=== PATIENT | female | born 1945 | race Caucasian/White ===

== ENCOUNTER 2017-05-06 14:57 | Emergency (ER) | payer MEDICARE ==
[~2017-05-06] VITALS: Ht 157.5 cm; Wt 66.7 kg
[2017-05-06] MEDS ORDERED: AZIT250 PO (16:32)
[2017-05-06] MEDS ORDERED: HYDCHL25 PO (16:32)
[2017-05-06] MEDS ORDERED: PRED20 PO (16:32)
[2017-05-06] MEDS ORDERED: Amoxicillin500 MG PO (16:32)
[2017-05-06] MEDS ORDERED: LEVSOD50 PO (16:33)
[2017-05-06] MEDS ORDERED: OMEPRAZOLE MAGN20 MG PO (16:33)
[2017-05-06] MEDS ORDERED: K-Dur10 MEQ (16:33)
[2017-05-06] MEDS ORDERED: Mupirocin22 GM (16:33)
[2017-05-06] MEDS ORDERED: Augmentin 500-1 EACH PO (17:20)
[2017-05-06] MEDS ORDERED: Triamcinolone A15 GM TOP (17:20)
== END 2017-05-06 17:27 | disposition home or self-care (01) ==
LOC: ER 14:57
DX: L03.031 Cellulitis of right toe (principal); I10 Essential (primary) hypertension; K21.9 Gastro-esophageal reflux disease without esophagitis; E03.9 Hypothyroidism, unspecified; Z88.5 Allergy status to narcotic agent; Z87.01 Personal history of pneumonia (recurrent); Z79.899 Other long term (current) drug therapy
CPT/HCPCS: 73630; 82947; 99283

== ENCOUNTER 2017-07-06 17:42 | Emergency (ER) | payer MEDICARE ==
[~2017-07-06] VITALS: Ht 152.4 cm; Wt 62.1 kg
[~2017-07-06 17:42] MED LIST: AZIT250 PO; Amoxicillin500 MG PO; Augmentin 500-1 EACH PO; HYDCHL25 PO; K-Dur10 MEQ; LEVSOD50 PO; Mupirocin22 GM; OMEPRAZOLE MAGN20 MG PO; PRED20 PO; Triamcinolone A15 GM TOP
[2017-07-06 18:54] LABS: BASOPHILS ABSOLUTE AUTO 0.03 K/mm3 (0.00-0.23); BASOPHILS PERCENT AUTO 0 % (0-2); EOSINOPHILS ABSOLUTE AUTO 0.42 K/mm3 (0.00-0.68); EOSINOPHILS PERCENT AUTO 2 % (0-6); Hematocrit 43.9 % (33.0-51.0); Hemoglobin 14.7 g/dL (11.5-16.0); IMMATURE GRAN ABSOLUTE AUTO 0.12 K/mm3 (0.00-0.10); IMMATURE GRAN PERCENT AUTO 1 % (0-1); LYMPHOCYTES ABSOLUTE AUTO 1.61 K/mm3 (0.84-5.20); LYMPHOCYTES PERCENT AUTO 8 % (21-46); MONOCYTES ABSOLUTE AUTO 1.52 K/mm3 (0.16-1.47); MONOCYTES PERCENT AUTO 7 % (4-13); Mean Corpuscular HGB 30.4 pg (26.0-34.0); Mean Corpuscular HGB Conc 33.5 g/dL (31.5-36.5); Mean Corpuscular Volume 91 fL (80-100); NEUTROPHILS ABSOLUTE AUTO 16.99 K/mm3 (1.96-9.15); NEUTROPHILS PERCENT AUTO 82 % (41-73); Platelet Count 323 K/mm3 (150-400); RDW Coefficient Variation 13.4 % (11.7-14.2); RDW Standard Deviation 45.2 fL (35.1-46.3); Red Blood Cell Count 4.83 M/mm3 (3.80-5.20); White Blood Cell Count 20.69 K/mm3 (4.00-11.30)
[2017-07-06 19:12] LABS: Alanine Aminotransfer (ALT/SGP 18 U/L (12-78); Albumin, Blood 3.5 g/dL (3.4-5.0); Albumin/Globulin Ratio 0.8 (0.8-1.8); Alk Phos 172 U/L (50-136); Anion Gap 9 mmol/L (6-16); Aspartate Aminotrans (AST/SGOT 14 U/L (12-37); Bilirubin, Total 1.4 mg/dL (0.1-1.0); Blood Urea Nitrogen 24 mg/dL (8-24); Bun/Creatinine Ratio 24.8 (12.0-20.0); CO2, Blood 27 mmol/L (21-32); Calcium, Blood 9.3 mg/dL (8.5-10.1); Chloride, Blood 101 mmol/L (98-108); Creatinine, Blood 0.97 mg/dL (0.40-1.00); Globulin, Blood 4.2 g/dL (2.2-4.0); Glomerular Filtration Rate >60 (60-); Glucose, Blood 128 mg/dL (70-99); Potassium, Blood 3.6 mmol/L (3.5-5.5); Sodium, Blood 137 mmol/L (136-145); Total Protein, Blood 7.7 g/dL (6.4-8.2)
[2017-07-06 21:44] LABS: Source, Urine Clean Catch
[2017-07-06 21:49] LABS: Blood, Urine 2+ (Neg); Glucose Qualitative, Urine Neg (Neg); Ketones, Urine 1+ (Neg); Leukocyte Esterase, Urine 1+ (Neg); Nitrite, Urine Neg (Neg); Protein, Urine 2+ (Neg); Specific Gravity, Urine 1.025 (1.003-1.022); Urobilinogen, Urine 2+ (Normal)
[2017-07-06 21:51] LABS: Appearance, Urine Hazy (Clear); Bilirubin, Urine 2+ (Neg); Color, Urine Amber (P-Yellow)
[2017-07-06 22:11] LABS: Amorphous Light (0-Heavy); Bacteria Mod /hpf; Calcium Oxalate Crystals Few /hpf; Hyaline Casts 25-50 /lpf (0-2); Red Blood Cells, Urine 0-2 /hpf (0-2); Squamous Epithelial Cells Few /hpf (Few)
[2017-07-06] MEDS ORDERED: POTCHL10ER (22:25)
[2017-07-06] MEDS ORDERED: HYDCHL25 PO (22:25)
[2017-07-06] MEDS ORDERED: MONT10T PO (22:26)
[2017-07-06] MEDS ORDERED: ALBU90OI61 INH (22:26)
== END 2017-07-07 02:05 | disposition home or self-care (01) ==
LOC: ER 17:42
PROVIDERS: Emergency Medicine
DX: R10.9 Unspecified abdominal pain (principal); R11.2 Nausea with vomiting, unspecified; J45.909 Unspecified asthma, uncomplicated; Z88.5 Allergy status to narcotic agent; Z79.899 Other long term (current) drug therapy; Z79.52 Long term (current) use of systemic steroids; Z79.2 Long term (current) use of antibiotics
CPT/HCPCS: 74019; 74177; 80053; 81001; 83690; 85025; 87077; 87086; 87186; 96374; 96376; 99284; J2405; J7120; Q9967

== ENCOUNTER 2018-03-04 05:43 | Day surgery (SDC) | payer MEDICARE, OTHER ==
[~2018-03-04] VITALS: Wt 62.1 kg
[~2018-03-04 05:43] MED LIST changes: +ACYC400 PO; +ALBU90OI61 INH; +HYDR1TAB94 PO; +MONT10T PO; +NAPR500 PO; +POTCHL10ER PO; +PRAV20 PO; +[UNRECOGNIZED DRUG - OTHER] PO
--- NOTE | 2018-03-04 06:41 | NUR ---
History, Chart, Medications and Allergies reviewed before start of procedure.Lungs clear T/O to Auscultation. LOTS OF QUESTIONS VSS WITH SLIGHTLY ELEVATED BP
--- NOTE | 2018-03-04 07:40 | NUR ---
BUMPED FOR OB BY AROUND 30 MINUTES
--- NOTE | 2018-03-04 08:58 | NUR ---
03/04/18 0858 Lakisha Mishra PT HAS SMALL OPEN CUT ON LEFT BIG TOE. NOTIFIED AND ASSESSED
--- NOTE | 2018-03-04 17:09 | NUR ---
SHIFT SUMMARY PT TOLERATED DIET EARLIER. PT BECAME NAUSEA WITH SMALL AMT OF EMESIS AFTER PT HAD 2ND OXYCODONE. PT DID NOT BECOME NAUSOUS AFTER HAVING FIRST OXYCODONE. PT REQ TO HAVE PAIN MED SWITCHED TO NORCO SHE HAS TAKEN THOSE BEFORE WITH NO ISSUES, CALL OUT TO . PT BEEN UP WITH THERAPY AND AMBULATED IN HALLWAY. PT VOIDING, BEEN UP TO CHAIR. TEDS/PAS/POLAR PAC IN PLACE. PT BEEN ASSISTED WITH ADL'S PRN.
--- NOTE | 2018-03-04 17:50 | NUR ---
TALKED TO DR ANDRADE REGARDING PT HAVING NAUSEA WITH SMALL AMT OF EMESIS AFTER HAVING 2ND OXYCODONE. PT REPORTED TAKING NORCO PREVIOUSLY WITH NO ISSUES. SEE ORDERS.
[2018-03-05 06:01] LABS: BASOPHILS ABSOLUTE AUTO 0.05 K/mm3 (0.00-0.23); BASOPHILS PERCENT AUTO 1 % (0-2); EOSINOPHILS ABSOLUTE AUTO 0.25 K/mm3 (0.00-0.68); EOSINOPHILS PERCENT AUTO 3 % (0-6); Hematocrit 28.6 % (33.0-51.0); Hemoglobin 9.1 g/dL (11.5-16.0); IMMATURE GRAN ABSOLUTE AUTO 0.02 K/mm3 (0.00-0.10); IMMATURE GRAN PERCENT AUTO 0 % (0-1); LYMPHOCYTES ABSOLUTE AUTO 1.88 K/mm3 (0.84-5.20); LYMPHOCYTES PERCENT AUTO 19 % (21-46); MONOCYTES ABSOLUTE AUTO 0.67 K/mm3 (0.16-1.47); MONOCYTES PERCENT AUTO 7 % (4-13); Mean Corpuscular HGB 30.1 pg (26.0-34.0); Mean Corpuscular HGB Conc 31.8 g/dL (31.5-36.5); Mean Corpuscular Volume 95 fL (80-100); Mean Platelet Volume 11.1 fL (9.1-12.4); NEUTROPHILS ABSOLUTE AUTO 6.87 K/mm3 (1.96-9.15); NEUTROPHILS PERCENT AUTO 71 % (41-73); Platelet Count 193 K/mm3 (150-400); RDW Coefficient Variation 13.4 % (11.7-14.2); RDW Standard Deviation 46.3 fL (35.1-46.3); Red Blood Cell Count 3.02 M/mm3 (3.80-5.20); White Blood Cell Count 9.74 K/mm3 (4.00-11.30)
[2018-03-05 06:21] LABS: Anion Gap 8 mmol/L (6-16); Blood Urea Nitrogen 24 mg/dL (8-24); CO2, Blood 25 mmol/L (21-32); Chloride, Blood 106 mmol/L (98-108); Creatinine, Blood 0.83 mg/dL (0.40-1.00); Glomerular Filtration Rate >60 (60-); Glucose, Blood 96 mg/dL (70-99); Sodium, Blood 139 mmol/L (136-145)
--- NOTE | 2018-03-05 07:19 | NUR ---
SHIFT SUMMARY PT IS POD 1 LEFT TKA. SHE IS A&O, ABLE TO MAKE NEEDS KNOWN. PT AMBULATES IN HALLS W/ 1 ASSIST, GB, FWW. MEDICATED FOR PAIN PER EMAR. PT VOIDING, EATING, DRINKING. SHE DID GET NAUSEATED LAST NIGHT AND VOMITED. REPORT PASSED TO NEXT SHIFT.
--- NOTE | 2018-03-05 17:45 | NUR ---
UP TO RECLINER MOST OF THE DAY, TOLERATING AMBULATING TO THE BATHROOM WITH STANDBY ASSIST, C/O 9/10 PAIN MOST OF THE DAY, NORCO Q4HR GIVEN, PT ALSO HAS HAD A DOSE OF IV FENTANYL THIS AM, DR. SCHAEFER NOTIFIED NORCO INCREASED TO 10MG 1-1 1/2 TAB PO Q4 HRS PRN, HAD SOME NAUSEA TODAY BUT RESOLVED ON ITS OWN WITHOUT ANTIEMETICS GIVEN, PT RELUCTANT TO GO HOME THIS EVENING WITH INCREASED NEED FOR PAIN MEDS, NO OTHER CHANGES THIS SHIFT.
--- NOTE | 2018-03-06 05:38 | NUR ---
LYING IN SEMI FOWLERS WITH EYES CLOSED. PAIN IS MANAGED WITH CURRENT PAIN REGIEMEN. REPOSITIONES SELF PRN FOR COMFORT. NO FURTHER CHANGES SINCE START OF SHIFT. SAFETY MEASURES IN PLACE. WILL GIVE HAND OFF TO ONCOMING SHIFT USING SBAR.
[2018-03-06] MEDS ORDERED: ASPI325EC PO (10:15)
[2018-03-06] MEDS ORDERED: Norco 10-325 T1 EACH PO (11:35)
[2018-03-06] MEDS ORDERED: ACET500 PO (12:07)
--- NOTE | 2018-03-06 12:45 | NUR ---
DC'D HOME, DC INSTRUCTIONS GIVEN TO PT AND FRIEND/DAY CARE ATTENDANT, VERBALIZED UNDERSTANDING.
== END 2018-03-06 12:44 | disposition home or self-care (01) ==
LOC: ORSCMMR 05:43 → PRE IP 07:30 → EDSTATUS 07:30 → SURS 12:23 → ORSCMMR 03-06 12:44
PROVIDERS: Orthopaedic Surgery
PROC: 0SRD0J9 Replacement of Left Knee Joint with Synthetic Substitute, Cemented, Open Approach (ICD-10-PCS; principal; 2018-03-04 07:30)
DX: M17.12 Unilateral primary osteoarthritis, left knee (principal); J45.909 Unspecified asthma, uncomplicated; K21.9 Gastro-esophageal reflux disease without esophagitis; I25.2 Old myocardial infarction; Z79.899 Other long term (current) drug therapy
CPT/HCPCS: 36415; 73560-LT; 80048; 83735; 85025; 88300; 97110; 97116; 97162; 97530; C1713; C1776; J0171; J0690; J0735; J1100; J1170; J1885; J2250; J2405; J2765; J2795; J3010; J7120

== ENCOUNTER 2018-06-07 07:52 | Inpatient (IN) | payer MEDICARE, OTHER ==
[~2018-06-07] VITALS: Ht 154.9 cm; Wt 57.6 kg
[~2018-06-07 07:52] MED LIST changes: +ACET500 PO; +ASPI325EC PO; +Magnesium Citr296 ML PO; +Norco 5-325 Ta1 EACH PO; +PROM25S PR; +Zofran4 MG PO
[2018-06-07 09:28] LABS: BASOPHILS ABSOLUTE AUTO 0.07 K/mm3 (0.00-0.23); BASOPHILS PERCENT AUTO 1 % (0-2); EOSINOPHILS ABSOLUTE AUTO 0.05 K/mm3 (0.00-0.68); EOSINOPHILS PERCENT AUTO 0 % (0-6); Hematocrit 41.2 % (33.0-51.0); Hemoglobin 12.6 g/dL (11.5-16.0); IMMATURE GRAN ABSOLUTE AUTO 0.07 K/mm3 (0.00-0.10); IMMATURE GRAN PERCENT AUTO 1 % (0-1); LYMPHOCYTES ABSOLUTE AUTO 1.42 K/mm3 (0.84-5.20); LYMPHOCYTES PERCENT AUTO 11 % (21-46); MONOCYTES ABSOLUTE AUTO 1.02 K/mm3 (0.16-1.47); MONOCYTES PERCENT AUTO 8 % (4-13); Mean Corpuscular HGB 28.1 pg (26.0-34.0); Mean Corpuscular HGB Conc 30.6 g/dL (31.5-36.5); Mean Corpuscular Volume 92 fL (80-100); NEUTROPHILS ABSOLUTE AUTO 10.55 K/mm3 (1.96-9.15); NEUTROPHILS PERCENT AUTO 80 % (41-73); Platelet Count 216 K/mm3 (150-400); RDW Coefficient Variation 14.3 % (11.7-14.2); RDW Standard Deviation 47.9 fL (35.1-46.3); Red Blood Cell Count 4.49 M/mm3 (3.80-5.20); White Blood Cell Count 13.18 K/mm3 (4.00-11.30)
[2018-06-07 09:44] LABS: Alanine Aminotransfer (ALT/SGP 13 U/L (12-78); Albumin, Blood 2.8 g/dL (3.4-5.0); Albumin/Globulin Ratio 0.7 (0.8-1.8); Alk Phos 91 U/L (50-136); Anion Gap 9 mmol/L (6-16); Aspartate Aminotrans (AST/SGOT 20 U/L (12-37); Bilirubin, Total 0.6 mg/dL (0.1-1.0); Blood Urea Nitrogen 35 mg/dL (8-24); Bun/Creatinine Ratio 37.1 (12.0-20.0); CO2, Blood 25 mmol/L (21-32); Calcium, Blood 8.6 mg/dL (8.5-10.1); Chloride, Blood 103 mmol/L (98-108); Creatinine, Blood 0.94 mg/dL (0.40-1.00); Globulin, Blood 3.8 g/dL (2.2-4.0); Glomerular Filtration Rate >60 (60-); Glucose, Blood 79 mg/dL (70-99); Potassium, Blood 3.6 mmol/L (3.5-5.5); Sodium, Blood 137 mmol/L (136-145); Total Protein, Blood 6.6 g/dL (6.4-8.2)
[2018-06-07 09:49] LABS: International Normalized Ratio 1.11; Prothrombin Time Results 11.7 Sec (9.7-11.5)
[2018-06-07 13:57] LABS: CHOL/HDL RATIO 3.4; Cholesterol 161 mg/dL (50-200); HDL Cholesterol 48 mg/dL (>39); LDL/HDL RATIO 1.8; Low Density Lipoprotein Chol 87 mg/dL (0-110); Triglycerides 130 mg/dL (30-160); Very Low Density Lipoprot Chol 26 mg/dL (6-32)
[2018-06-07] MEDS ORDERED: Bisoprolol Fumar5 MG PO (14:04)
--- NOTE | 2018-06-07 16:10 | NUR ---
PATIENT ARRIVES VIA STRETCHER. VERY GARBLED SPEECH WHICH IS INCOMPREHENSIBLE. PRINCIPAL NETWORK ENGINEER EQUAL AND VERY WEAK. NO ARM DRIFT. UNABLE TO TOUCH NOSE WITH FINGER WITH EITHER HAND--TOUCHES CHIN OR LIPS. UNABLE TO LIFT EITHER LEG OFF BED. FOOT PUSH VERY WEAK BUT EQUAL. PULLING TOES TO NOSE ALSO EQUAL BUT VERY WEAK. SEEMS TO COMPREHEND WHAT RN IS SAYING. WHEN ASKED IF SHE NEEDS TO USE BEDPAN, NODS HEAD. PATIENT DID URINATE. TELE ON. ALARM ON. REVIEW CVA W/RELATIVES WHO HAVE SINCE LEFT. ADVISED S.O. HE CAN CALL ABOUT UPDATES. SOFT TOUCH CALL LIGHT SET UP.[facility]
--- NOTE | 2018-06-08 03:33 | NUR ---
SHIFT SUMMARY PATIENT HAD NO ACUTE CHANGES OBSERVED THIS SHIFT. NON-VERBAL AND BEDFAST BUT WILL FOLLOW DIRECTIONS. CLEANING ASSOCIATE WEAK WITH RS CRYOGENICS REPAIRER VERY WEAK. ABLE TO LIFT BOTH ARMS WITH R ARM SLOWER TO RAISE. PUPILS EQUAL AND REACTIVE. NPO UNTIL SPEECH EVALUATION. PIV REMAINS INTACT. NO S/SX OF PAIN, SOB, AND N/V. COST ACCOUNTANT REPORTS NSR 73 W/PVC. USES BEDPAN. SOFT TOUCH CALL LIGHT. BED ALARM ACTIVATED. WILL CONTINUE TO MONITOR UNTIL DAY SHIFT NURSE ASSUMES CARE.
[2018-06-08 05:51] LABS: BASOPHILS PERCENT AUTO 1 % (0-2); EOSINOPHILS ABSOLUTE AUTO 0.13 K/mm3 (0.00-0.68); EOSINOPHILS PERCENT AUTO 2 % (0-6); Hematocrit 34.8 % (33.0-51.0); IMMATURE GRAN ABSOLUTE AUTO 0.02 K/mm3 (0.00-0.10); IMMATURE GRAN PERCENT AUTO 0 % (0-1); LYMPHOCYTES ABSOLUTE AUTO 1.37 K/mm3 (0.84-5.20); LYMPHOCYTES PERCENT AUTO 18 % (21-46); MONOCYTES ABSOLUTE AUTO 0.73 K/mm3 (0.16-1.47); MONOCYTES PERCENT AUTO 10 % (4-13); Mean Corpuscular HGB 28.6 pg (26.0-34.0); Mean Corpuscular HGB Conc 31.6 g/dL (31.5-36.5); Mean Corpuscular Volume 90 fL (80-100); Mean Platelet Volume 11.1 fL (9.1-12.4); NEUTROPHILS ABSOLUTE AUTO 5.35 K/mm3 (1.96-9.15); NEUTROPHILS PERCENT AUTO 69 % (41-73); Platelet Count 200 K/mm3 (150-400); RDW Coefficient Variation 14.6 % (11.7-14.2); RDW Standard Deviation 48.4 fL (35.1-46.3); Red Blood Cell Count 3.85 M/mm3 (3.80-5.20)
[2018-06-08 06:12] LABS: Calcium, Blood 8.3 mg/dL (8.5-10.1); Creatinine, Blood 1.02 mg/dL (0.40-1.00); Potassium, Blood 3.3 mmol/L (3.5-5.5)
--- NOTE | 2018-06-08 18:48 | NUR ---
SHIFT SUMMARY NO ACUTE CHANGES. PATIENT WORKED WITH PT/OT AND SPEECH TODAY. PATIENT ADVANCED TO PUREE TEXTURE AND ABLE TO USE STRAW. 1 ASSIST TO CHAIR W/ GAIT BELT AND FWW. MEDICATED X 1 FOR PAIN IN THE RIGHT KNEE. COLD AND HEAT THERAPY ALSO HELPFUL. FAMILY AT BEDSIDE. PATIETN ABLE TO SHAKE HEAD YES/NO BUT CONTINUE TO STRUGGLE TO FORM WORDS. CALL LIGHT IN REACH, WILL CONTINUE TO MONITOR.
[2018-06-09 05:02] LABS: BASOPHILS ABSOLUTE AUTO 0.07 K/mm3 (0.00-0.23); BASOPHILS PERCENT AUTO 1 % (0-2); EOSINOPHILS ABSOLUTE AUTO 0.36 K/mm3 (0.00-0.68); EOSINOPHILS PERCENT AUTO 5 % (0-6); Hematocrit 32.3 % (33.0-51.0); Hemoglobin 10.1 g/dL (11.5-16.0); IMMATURE GRAN ABSOLUTE AUTO 0.02 K/mm3 (0.00-0.10); IMMATURE GRAN PERCENT AUTO 0 % (0-1); LYMPHOCYTES ABSOLUTE AUTO 1.61 K/mm3 (0.84-5.20); LYMPHOCYTES PERCENT AUTO 22 % (21-46); MONOCYTES ABSOLUTE AUTO 0.72 K/mm3 (0.16-1.47); MONOCYTES PERCENT AUTO 10 % (4-13); Mean Corpuscular HGB 27.8 pg (26.0-34.0); Mean Corpuscular HGB Conc 31.3 g/dL (31.5-36.5); Mean Corpuscular Volume 89 fL (80-100); Mean Platelet Volume 11.2 fL (9.1-12.4); NEUTROPHILS ABSOLUTE AUTO 4.52 K/mm3 (1.96-9.15); NEUTROPHILS PERCENT AUTO 62 % (41-73); Platelet Count 195 K/mm3 (150-400); RDW Coefficient Variation 14.4 % (11.7-14.2); RDW Standard Deviation 46.8 fL (35.1-46.3); Red Blood Cell Count 3.63 M/mm3 (3.80-5.20)
[2018-06-09 05:23] LABS: Anion Gap 4 mmol/L (6-16); Blood Urea Nitrogen 48 mg/dL (8-24); Bun/Creatinine Ratio 61.7 (12.0-20.0); CO2, Blood 28 mmol/L (21-32); Calcium, Blood 7.9 mg/dL (8.5-10.1); Chloride, Blood 111 mmol/L (98-108); Creatinine, Blood 0.78 mg/dL (0.40-1.00); Glomerular Filtration Rate >60 (60-); Glucose, Blood 87 mg/dL (70-99); Potassium, Blood 3.6 mmol/L (3.5-5.5); Sodium, Blood 143 mmol/L (136-145)
--- NOTE | 2018-06-09 05:56 | NUR ---
SHIFT SUMMARY PT HAD FAIR NIGHT, MEDICATED FOR PAIN AT BEDTIME. DIFFICULT TO COMMUNICATE WITH PT SHE IS NON-VERBAL. PT POINTS TO WHAT SHE WANTS OR CRIES OUT IF SHE'S HAVING PAIN. PT WITH RIGHT SIDED FACIAL DROOP AND RIGHT SIDED DEFICIT. PT INCONTINENT DURING THE NIGHT. NO ACUTE EVENTS OR CHANGES NOTED DURING THE NIGHT, WILL CONTINUE TO MONITOR.
--- NOTE | 2018-06-09 16:28 | NUR ---
SUMMARY DX CVA W R FACIAL DROOP, WEAKNESS R ARM & LEG, APHASIA. SYMPTOMS CONTINUE. SHE ATTEMPTS TO MAKE SPEECH HOWEVER UNABLE. ST TX THIS AM, THERAPIST STATE MINIMAL IMPROVEMENT. DIET CONTINUES PUREED. STATE PT UNABLE TO MAKE WORDS, SHE WAS ABLE TO COPY SOME WRITTEN WORDS. PT ABLE TO COMMAND RUE, HOWEVER POOR COORDINATION. WEAK R LEG, ABLE TO BR SOME WT. SAND PIVOT TO CHAIR 1 ASSIST. SHE HAS HX R KNEE/JOINT PAIN, TYLENOL & NORCO FOR CONTROL/RELIEF TODAY. MULT SUPPORTIVE FAMILY MEMBERS WITH PT TODAY. SHE IS A/O, SOMEWHAT DEPRESSED & FRUSTRATED. PLAN FOR HER TO TRANSFER TO SNF FOR REHAB WHEN APPROP.
[2018-06-10 04:46] LABS: BASOPHILS ABSOLUTE AUTO 0.05 K/mm3 (0.00-0.23); BASOPHILS PERCENT AUTO 1 % (0-2); EOSINOPHILS ABSOLUTE AUTO 0.34 K/mm3 (0.00-0.68); EOSINOPHILS PERCENT AUTO 5 % (0-6); Hematocrit 31.2 % (33.0-51.0); Hemoglobin 9.8 g/dL (11.5-16.0); IMMATURE GRAN ABSOLUTE AUTO 0.02 K/mm3 (0.00-0.10); IMMATURE GRAN PERCENT AUTO 0 % (0-1); LYMPHOCYTES ABSOLUTE AUTO 0.91 K/mm3 (0.84-5.20); LYMPHOCYTES PERCENT AUTO 13 % (21-46); MONOCYTES ABSOLUTE AUTO 0.57 K/mm3 (0.16-1.47); MONOCYTES PERCENT AUTO 8 % (4-13); Mean Corpuscular HGB 28.1 pg (26.0-34.0); Mean Corpuscular HGB Conc 31.4 g/dL (31.5-36.5); Mean Corpuscular Volume 89 fL (80-100); NEUTROPHILS ABSOLUTE AUTO 5.31 K/mm3 (1.96-9.15); NEUTROPHILS PERCENT AUTO 74 % (41-73); Platelet Count 183 K/mm3 (150-400); RDW Coefficient Variation 14.7 % (11.7-14.2); RDW Standard Deviation 48.2 fL (35.1-46.3); Red Blood Cell Count 3.49 M/mm3 (3.80-5.20)
[2018-06-10 05:01] LABS: Anion Gap 4 mmol/L (6-16); Blood Urea Nitrogen 32 mg/dL (8-24); Bun/Creatinine Ratio 44.1 (12.0-20.0); CO2, Blood 27 mmol/L (21-32); Chloride, Blood 111 mmol/L (98-108); Creatinine, Blood 0.73 mg/dL (0.40-1.00); Glomerular Filtration Rate >60 (60-); Glucose, Blood 106 mg/dL (70-99); Potassium, Blood 3.8 mmol/L (3.5-5.5); Sodium, Blood 142 mmol/L (136-145)
--- NOTE | 2018-06-10 05:45 | NUR ---
SHIFT SUMMARY PT SLEEPS WELL AFTER RECEIVING PO PAIN MEDICATION. PT CRIES OUT IN PAIN WHEN SHE NEEDS SOMETHING FOR PAIN. TELE READS NSR. IVF'S INFUSING WITHOUT DIFFICULTY. NO ACUTE EVENTS NOTED DURING THE NIGHT, WILL CONTINUE TO MONITOR.
--- NOTE | 2018-06-10 14:46 | NUR ---
TRANSFER TO SNF ISTRATE IN TO SEE PT TODAY, PLACE ORDER FOR TRANSFER TO SNF FOR REHAB. FAMILY HAS REQUESTED [facility]. CROWD CONTROLLER CLEMENTE MORRISSEY MAKE ARRANGEMENTS FOR TRANSFER & TRANSPORTATION. [facility] W/C VAN WILL P/U APPROX 1530. PT/FAMILY AWARE NOTIFIED. PT CONTINUES APHASIC, ST WORKED W HER THIS AM. R SIDED WEAKNESS CONTINUES HOWEVER R ARM CONTINUES TO IMPROVE. R KNEE CONTINUES PAINFUL R/T HX JOINT PROBLEMS. REPORT CALLED TO [facility]. ALARM ADJUSTER ASSIST PT WITH BATH & DRESS IN HOSP PJ'S. IV D/C INTACT. TAKE HOME BELONGINGS & JEWELRY/RINGS PRIOR TO D/C. VSS. PRN NORCO GIVEN FOR R KNEE PAIN @ 1400, LIDODERM PATCH IN PLACE. AWAITING TRANSFER.
[2018-06-10] MEDS ORDERED: Pravachol40 MG PO (14:47)
[2018-06-10] MEDS ORDERED: ACET325 PO (14:48)
[2018-06-10] MEDS ORDERED: ALBU2.5V5 (14:50)
[2018-06-10] MEDS ORDERED: ASCO500 PO (14:50)
[2018-06-10] MEDS ORDERED: BAYER CHEWABLE81 MG PO (14:51)
[2018-06-10] MEDS ORDERED: CLOP75 PO (14:52)
[2018-06-10] MEDS ORDERED: BISA10S PR (14:52)
[2018-06-10] MEDS ORDERED: DOCU100 (14:53)
[2018-06-10] MEDS ORDERED: FAMO20 PO (14:53)
[2018-06-10] MEDS ORDERED: lidoderm (14:57)
[2018-06-10] MEDS ORDERED: FERROUS SUL (15:05)
[2018-06-10] MEDS ORDERED: ONDA4ODT MM (15:06)
[2018-06-10] MEDS ORDERED: MIRALAX17 GM (15:08)
[2018-06-10] MEDS ORDERED: HYDCHL25 PO (15:10)
[2018-06-10] MEDS ORDERED: Norco 7.5-3251 EACH (15:12)
== END 2018-06-10 15:39 | DRG 65 ==
LOC: ER 07:52 → ERHOLD 10:03 → MEDS 14:15
PROVIDERS: Emergency Medicine; Family Medicine; ADMIT Internal Medicine
DX: I63.9 Cerebral infarction, unspecified (principal); G81.91 Hemiplegia, unspecified affecting right dominant side; J44.9 Chronic obstructive pulmonary disease, unspecified; E03.9 Hypothyroidism, unspecified; E78.5 Hyperlipidemia, unspecified; M79.7 Fibromyalgia; R29.810 Facial weakness; R47.01 Aphasia; R10.9 Unspecified abdominal pain; I13.10 Hypertensive heart and chronic kidney disease without heart failure, with stage 1 through stage 4 chronic kidney disease, or unspecified chronic kidney disease; N18.3 Chronic kidney disease, stage 3 (moderate); R40.2412 Glasgow coma scale score 13-15, at arrival to emergency department
CPT/HCPCS: 36415; 70496; 70498; 71045; 80048; 80053; 80061; 85025; 85610; 85730; 92507; 92523; 92610; 93005; 93010; 93306; 94640; 94760; 97110; 97112; 97116; 97162; 97166; 97530; 97535; 99285-25; J1650; J7030; Q9967

== ENCOUNTER 2019-09-12 13:28 | Emergency (ER) | payer MEDICARE, OTHER ==
[~2019-09-12] VITALS: Ht 154.9 cm; Wt 57.1 kg
[~2019-09-12 13:28] MED LIST changes: +ACET325 PO; +ALBU2.5V5; +ASCO500 PO; +BAYER CHEWABLE81 MG PO; +BISA10S PR; +Bisoprolol Fumar5 MG PO; +CLOP75 PO; +DOCU100; +FAMO20 PO; +FERROUS SUL; +MIRALAX17 GM; +Norco 7.5-3251 EACH; +ONDA4ODT MM; +Pravachol40 MG PO; +lidoderm
== END 2019-09-12 14:20 | disposition home or self-care (01) ==
LOC: ER 13:28
DX: S00.83XA Contusion of other part of head, initial encounter (principal); Z88.5 Allergy status to narcotic agent; Z88.1 Allergy status to other antibiotic agents; Z88.8 Allergy status to other drugs, medicaments and biological substances; Z79.899 Other long term (current) drug therapy; I10 Essential (primary) hypertension; J44.9 Chronic obstructive pulmonary disease, unspecified; E03.9 Hypothyroidism, unspecified; E78.5 Hyperlipidemia, unspecified; Z86.73 Personal history of transient ischemic attack (TIA), and cerebral infarction without residual deficits; W19.XXXA Unspecified fall, initial encounter
CPT/HCPCS: 70450; 99283-25

== ENCOUNTER → 2020-03-18 | Outpatient (CLI) | payer MEDICARE ==
[~2020-03-18] MED LIST changes: +8 HOUR ACETAMI650 MG PO; -ALBU2.5V5; +ALBU2.5V5 INH; +ALBU2.5V5 NEB; +Aspir 8181 MG PO; +Aspirin EC81 MG PO; +DOCU100 PO; +EUTHYROX50 MCG PO; +FERSU300 PO; +LIDO700A20 TOP; -MIRALAX17 GM; +MIRALAX17 GM PO; +MIRT15 PO; +Norco 7.5-3251 EACH PO; +OMEP20ER PO; +PLAVIX75 MG PO; +POTA10T PO; +ROXICODONE5 MG PO; +Voltaren100 GM
== END | disposition home or self-care (01) ==
LOC: LAB SHORT 13:51 → PLD 13:51
DX: B35.1 Tinea unguium (principal); L60.2 Onychogryphosis
CPT/HCPCS: 88305; 88312

== ENCOUNTER 2020-04-11 11:32 | Day surgery (SDC) | payer MEDICARE, OTHER ==
[~2020-04-11 11:32] MED LIST changes: -8 HOUR ACETAMI650 MG PO; -ALBU2.5V5 INH; -Aspirin EC81 MG PO; -DOCU100 PO; -EUTHYROX50 MCG PO; -FERSU300 PO; -LIDO700A20 TOP; -MIRT15 PO; -Norco 7.5-3251 EACH PO; -OMEP20ER PO; -PLAVIX75 MG PO; -POTA10T PO; -Voltaren100 GM
[2020-06-07] MEDS ORDERED: 8 HOUR ACETAMI650 MG PO (10:11)
[2020-06-07] MEDS ORDERED: HYDCHL25 PO (10:11)
[2020-06-07] MEDS ORDERED: Aspirin EC81 MG PO (10:11)
[2020-06-07] MEDS ORDERED: FAMO20 PO (10:11)
[2020-06-07] MEDS ORDERED: MIRT15 PO (10:11)
[2020-06-07] MEDS ORDERED: OMEP20ER PO (10:12)
[2020-06-07] MEDS ORDERED: LIDO700A20 TOP (10:12)
[2020-06-07] MEDS ORDERED: MONT10T PO (10:12)
[2020-06-07] MEDS ORDERED: POTA10T PO (10:12)
[2020-06-07] MEDS ORDERED: EUTHYROX50 MCG PO (10:12)
[2020-06-07] MEDS ORDERED: PLAVIX75 MG PO (10:12)
[2020-06-07] MEDS ORDERED: ALBU2.5V5 INH (10:13)
[2020-06-07] MEDS ORDERED: Norco 7.5-3251 EACH PO (10:13)
[2020-06-07] MEDS ORDERED: FERSU300 PO (10:13)
[2020-06-07] MEDS ORDERED: Bisoprolol Fumar5 MG PO (10:13)
[2020-06-07] MEDS ORDERED: Voltaren100 GM (10:13)
[2020-06-07] MEDS ORDERED: DOCU100 PO (10:14)
== END 2020-04-11 11:45 | disposition other institution (70) ==
LOC: ORSCSDS 11:32
DX: M20.42 Other hammer toe(s) (acquired), left foot (principal); G60.3 Idiopathic progressive neuropathy; Z53.9 Procedure and treatment not carried out, unspecified reason

== ENCOUNTER 2020-04-11 11:45 | Emergency (ER) | payer MEDICARE, OTHER ==
[~2020-04-11] VITALS: Ht 154.9 cm; Wt 59.9 kg
[2020-06-07] MEDS ORDERED: HYDCHL25 PO (10:11)
[2020-06-07] MEDS ORDERED: 8 HOUR ACETAMI650 MG PO (10:11)
[2020-06-07] MEDS ORDERED: Aspirin EC81 MG PO (10:11)
[2020-06-07] MEDS ORDERED: MIRT15 PO (10:11)
[2020-06-07] MEDS ORDERED: FAMO20 PO (10:11)
[2020-06-07] MEDS ORDERED: OMEP20ER PO (10:12)
[2020-06-07] MEDS ORDERED: POTA10T PO (10:12)
[2020-06-07] MEDS ORDERED: LIDO700A20 TOP (10:12)
[2020-06-07] MEDS ORDERED: MONT10T PO (10:12)
[2020-06-07] MEDS ORDERED: EUTHYROX50 MCG PO (10:12)
[2020-06-07] MEDS ORDERED: PLAVIX75 MG PO (10:12)
[2020-06-07] MEDS ORDERED: Bisoprolol Fumar5 MG PO (10:13)
[2020-06-07] MEDS ORDERED: Norco 7.5-3251 EACH PO (10:13)
[2020-06-07] MEDS ORDERED: ALBU2.5V5 INH (10:13)
[2020-06-07] MEDS ORDERED: FERSU300 PO (10:13)
[2020-06-07] MEDS ORDERED: Voltaren100 GM (10:13)
[2020-06-07] MEDS ORDERED: DOCU100 PO (10:14)
== END 2020-04-11 13:45 | disposition home or self-care (01) ==
LOC: ER 11:45
DX: R55 Syncope and collapse (principal); I10 Essential (primary) hypertension; J44.9 Chronic obstructive pulmonary disease, unspecified; E78.5 Hyperlipidemia, unspecified; E03.9 Hypothyroidism, unspecified; Z88.1 Allergy status to other antibiotic agents; Z88.5 Allergy status to narcotic agent; Z88.8 Allergy status to other drugs, medicaments and biological substances; Z86.73 Personal history of transient ischemic attack (TIA), and cerebral infarction without residual deficits; Z79.899 Other long term (current) drug therapy
CPT/HCPCS: 82947; 93005; 93010; 99284-25

== ENCOUNTER 2020-06-13 11:08 | Day surgery (SDC) | payer MEDICARE, OTHER ==
[~2020-06-13] VITALS: Ht 154.9 cm; Wt 62.1 kg
[~2020-06-13 11:08] MED LIST changes: +8 HOUR ACETAMI650 MG PO; +ALBU2.5V5 INH; +Aspirin EC81 MG PO; +DOCU100 PO; +EUTHYROX50 MCG PO; +FERSU300 PO; +LIDO700A20 TOP; +MIRT15 PO; +Norco 7.5-3251 EACH PO; +OMEP20ER PO; +PLAVIX75 MG PO; +POTA10T PO; +Voltaren100 GM
--- NOTE | 2020-06-13 11:55 | NUR ---
06/13/20 1155 Mariam Jeff CHARTED BY [facility]. [facility]
--- NOTE | 2020-06-13 14:34 | NUR ---
06/13/20 1434 Ama Monroy BUPIVACAINE 0.5% 10ML MIXED 1:1 WITH LIDOCAINE 1% PF FOR INJECTION PRIOR TO START OF PROCEDURE BY PHYSICIAN.
--- NOTE | 2020-06-13 14:48 | NUR ---
06/13/20 1448 LYNDA CRISTOBAL PT BLEEDING FROM IV SITE IN R HAND. IV DC WITHOUT COMPLICATION. NO SWELLING OR REDNESS AT IV SITE.
== END 2020-06-13 14:39 | disposition home or self-care (01) ==
LOC: ORSCSDS 11:08
PROVIDERS: Podiatrist
PROC: 0L8W0ZZ Division of Left Foot Tendon, Open Approach (ICD-10-PCS; principal; 2020-06-13 12:30)
PROC: 0SNQ0ZZ Release Left Toe Phalangeal Joint, Open Approach (ICD-10-PCS; principal; 2020-06-13 12:30)
DX: M20.42 Other hammer toe(s) (acquired), left foot (principal); Z86.73 Personal history of transient ischemic attack (TIA), and cerebral infarction without residual deficits; E03.9 Hypothyroidism, unspecified; I25.2 Old myocardial infarction; Z79.899 Other long term (current) drug therapy; Z79.82 Long term (current) use of aspirin
CPT/HCPCS: J0690; J2001; J2250; J2704; J3010

== ENCOUNTER → 2021-01-15 | Outpatient (CLI) | payer MEDICARE, OTHER ==
[2021-01-16 10:49] LABS: Candida species (DNA Probe) Negative (NEGATIVE); G. vaginalis (DNA Probe) Negative (NEGATIVE); T. vaginalis (DNA Probe) Negative (NEGATIVE)
== END | disposition home or self-care (01) ==
LOC: LAB SHORT 11:10 → LAB 11:10
PROVIDERS: Nurse Practitioner Family
DX: N89.8 Other specified noninflammatory disorders of vagina (principal)
CPT/HCPCS: 87480; 87510; 87660

== ENCOUNTER → 2023-08-26 | Outpatient (CLI) | payer MEDICARE, OTHER ==
[2023-08-26 15:00] LABS: Percent Saturation 54.4 % (15.0-50.0)
== END ==
LOC: LAB 13:01 → LAB SHORT 13:01
PROVIDERS: Internal Medicine Hematology & Oncology
DX: E61.1 Iron deficiency (principal); E53.8 Deficiency of other specified B group vitamins
CPT/HCPCS: 82607; 82728; 83540; 83550

== ENCOUNTER → 2023-11-10 | Outpatient (CLI) | payer MEDICARE, OTHER ==
[2023-11-10 17:26] LABS: BASOPHILS ABSOLUTE AUTO 0.07 K/mm3 (0.00-0.23); BASOPHILS PERCENT AUTO 1 % (0-2); EOSINOPHILS ABSOLUTE AUTO 0.33 K/mm3 (0.00-0.68); EOSINOPHILS PERCENT AUTO 6 % (0-6); Hematocrit 35.2 % (33.0-51.0); Hemoglobin 11.6 g/dL (11.5-16.0); IMMATURE GRAN ABSOLUTE AUTO 0.02 K/mm3 (0.00-0.10); IMMATURE GRAN PERCENT AUTO 0 % (0-1); LYMPHOCYTES PERCENT AUTO 19 % (21-46); MONOCYTES ABSOLUTE AUTO 0.45 K/mm3 (0.16-1.47); MONOCYTES PERCENT AUTO 8 % (4-13); Mean Corpuscular HGB 32.3 pg (26.0-34.0); Mean Corpuscular Volume 98 fL (80-100); Mean Platelet Volume 11.6 fL (9.1-12.4); NEUTROPHILS ABSOLUTE AUTO 3.53 K/mm3 (1.96-9.15); NEUTROPHILS PERCENT AUTO 65 % (41-73); Platelet Count 184 K/mm3 (150-400); RDW Coefficient Variation 12.5 % (11.7-14.2); RDW Standard Deviation 45.2 fL (35.1-46.3); Red Blood Cell Count 3.59 M/mm3 (3.80-5.20)
== END | disposition home or self-care (01) ==
LOC: LAB SHORT 14:18 → LAB 14:18
PROVIDERS: Internal Medicine Hematology & Oncology
DX: E61.1 Iron deficiency (principal)
CPT/HCPCS: 85025